=== PATIENT | female | born 1950 | race Caucasian/White ===

== ENCOUNTER 2017-02-05 18:56 | Inpatient (IN) | payer MEDICARE ==
[~2017-02-05] VITALS: Ht 160 cm; Wt 72.0 kg
[2017-02-05 18:58] VITALS: BP 178/83; PULSE 119; RESP 16; TEMP 102.9; O2SAT 98
[2017-02-05] MEDS ORDERED: PIPERACIL-TAZO 4.5 GM PREMIX 100 ML IV STA (19:17)
--- NOTE | 2017-02-05 19:27 | PD ---
HPI Chief Complaint: Bite or Sting Time Seen by Provider: 19:25 Travel History International Travel<30 days: No Contact w/Intl Traveler<30days: No Traveled to known affect area: No History of Present Illness HPI 66-year-old female with history of no significant past medical issues, presents to the ER today because she states that her cat had bitten her on the left arm 4 days ago, and the area started turning red and swollen and she was seen in urgent care yesterday, received Bactrim and doxycycline which she took 1 dose of yesterday. However, she started running fevers last night and the area of redness is spreading, had been told earlier to come to the ER by urgent care and she is here. She denies any other issues. Modifying Factors: None Associated Signs & Symptoms: Left arm cat bite, worsening swelling and redness, fevers Risk Factors: On antibiotics PFSH Past Medical History Bipolar Disorder: Yes Tetanus Vaccination: Unknown Influenza Vaccination: No Social History Alcohol Use: No Tobacco Use: No Substance Use: No Allergies-Medications (Allergen,Severity, Reaction): Coded Allergies: No Known Allergies (Unverified , 02/05/17) Review of Systems Except as stated in HPI: all other systems reviewed are Neg Physical Exam Narrative GENERAL: Well-developed elderly white female patient currently in mild distress. Awake and oriented 3. SKIN: Focused skin assessment warm/dry. There is notable for puncture wounds to the left forearm with significant erythema and edema over the entire left forearm going up the upper arm area. Streaking. Neurovascularly intact. No underlying fluctuance. HEAD: Atraumatic. Normocephalic. EYES: Pupils equal and round. No scleral icterus. No injection or drainage. ENT: No nasal bleeding or discharge. Mucous membranes pink and moist. NECK: Trachea midline. No JVD. CARDIOVASCULAR: Regular rate and rhythm. No murmur appreciated. RESPIRATORY: No accessory muscle use. Clear to auscultation. Breath sounds equal bilaterally. GASTROINTESTINAL: Abdomen soft, non-tender, nondistended. Hepatic and splenic margins not palpable. MUSCULOSKELETAL: No obvious deformities. No clubbing. No cyanosis. No edema. NEUROLOGICAL: Awake and alert. No obvious cranial nerve deficits. Motor grossly within normal limits. Normal speech. PSYCHIATRIC: Appropriate mood and affect; insight and judgment normal. Data Data Last Documented VS Vital Signs Date Time Temp Pulse Resp B/P (MAP) Pulse Ox O2 Delivery O2 Flow Rate FiO2 02/05/17 18:58 102.9 119 16 178/83 (114) 98 Orders Orders Complete Blood Count With Diff (02/05/17 19:17) Comprehensive Metabolic Panel (02/05/17 19:17) Lactic Acid Sepsis Protocol (02/05/17 19:17) Urinalysis - C+S If Indicated (02/05/17 19:17) Blood Culture (02/05/17 19:17) Chest, Single Ap (02/05/17 19:17) Blood Glucose (02/05/17 19:17) Ecg Monitoring (02/05/17 19:17) Iv Access Insert/Monitor (02/05/17 19:17) Oximetry (02/05/17 19:17) Oxygen Administration (02/05/17 19:17) Piperacil-Tazo 4.5 Gm Premix (Zosyn 4.5 (02/05/17 19:17) Labs Laboratory Tests Test 02/05/17 19:25 02/05/17 19:34 White Blood Count 12.2 TH/MM3 Red Blood Count 4.07 MIL/MM3 Hemoglobin 12.0 GM/DL Hematocrit 37.3 % Mean Corpuscular Volume 91.6 FL Mean Corpuscular Hemoglobin 29.4 PG Mean Corpuscular Hemoglobin Concent 32.1 % Red Cell Distribution Width 15.1 % Platelet Count 255 TH/MM3 Mean Platelet Volume 7.1 FL Neutrophils (%) (Auto) 89.9 % Lymphocytes (%) (Auto) 4.9 % Monocytes (%) (Auto) 4.8 % Eosinophils (%) (Auto) 0.2 % Basophils (%) (Auto) 0.2 % Neutrophils # (Auto) 11.0 TH/MM3 Lymphocytes # (Auto) 0.6 TH/MM3 Monocytes # (Auto) 0.6 TH/MM3 Eosinophils # (Auto) 0.0 TH/MM3 Basophils # (Auto) 0.0 TH/MM3 CBC Comment DIFF FINAL Differential Comment Blood Urea Nitrogen 16 MG/DL Creatinine 0.76 MG/DL Random Glucose 126 MG/DL Total Protein 7.9 GM/DL Albumin 3.3 GM/DL Calcium Level 8.5 MG/DL Alkaline Phosphatase 105 U/L Aspartate Amino Transf (AST/SGOT) 54 U/L Alanine Aminotransferase (ALT/SGPT) 58 U/L Total Bilirubin 0.4 MG/DL Sodium Level 136 MEQ/L Potassium Level 3.8 MEQ/L Chloride Level 101 MEQ/L Carbon Dioxide Level 26.3 MEQ/L Anion Gap 9 MEQ/L Estimat Glomerular Filtration Rate 76 ML/MIN Lactic Acid Level 1.5 mmol/L Urine Color YELLOW Urine Turbidity HAZY Urine pH 8.0 Urine Specific [place] 1.013 Urine Protein NEG mg/dL Urine Glucose (UA) NEG mg/dL Urine Ketones NEG mg/dL Urine Occult Blood TRACE Urine Nitrite NEG Urine Bilirubin NEG Urine Urobilinogen LESS THAN 2.0 MG/DL Urine Leukocyte Esterase TRACE Urine RBC 3 /hpf Urine WBC 5 /hpf Urine Squamous Epithelial Cells 2 /hpf Microscopic Urinalysis Comment CATH-CULT NOT IND MDM Medical Decision Making Medical Screen Exam Complete: Yes Emergency Medical Condition: Yes Medical Record Reviewed: Yes Interpretation(s) Laboratory Tests Test 02/05/17 19:25 02/05/17 19:34 White Blood Count 12.2 TH/MM3 (4.0-11.0) Neutrophils (%) (Auto) 89.9 % (16.0-70.0) Lymphocytes (%) (Auto) 4.9 % (9.0-44.0) Neutrophils # (Auto) 11.0 TH/MM3 (1.8-7.7) Lymphocytes # (Auto) 0.6 TH/MM3 (1.0-4.8) Random Glucose 126 MG/DL (74-106) Albumin 3.3 GM/DL (3.4-5.0) Aspartate Amino Transf (AST/SGOT) 54 U/L (15-37) Alanine Aminotransferase (ALT/SGPT) 58 U/L (10-53) Estimat Glomerular Filtration Rate 76 ML/MIN (>89) Urine Turbidity HAZY (CLEAR) Urine Occult Blood TRACE (NEG) Urine Leukocyte Esterase TRACE (NEG) Differential Diagnosis Cat bite/cellulitis, possible sepsis Narrative Course Lab work shows white count elevation and patient has been taking antibiotics but is still running a fever, worsening cellulitis, and there is concern of failed outpatient therapy. At this point, my plan would be to admit her for IV antibiotics which was initiated after cultures have been done. Case was discussed with Dr. Santo for admission. Diagnosis Primary Impression: Left arm cellulitis Additional Impression: Sepsis Admitting Information Admitting Physician Requests: Admit Jose Palomo MD Feb 05, 2017 19:27
[2017-02-05 20:10] LABS: BASOPHIL % 0.2 % (0.0-2.0); EOSINOPHIL % 0.2 % (0.0-4.0); HEMATOCRIT 37.3 % (35.0-46.0); HEMO FLAGS DIFF FINAL; LYMPH % 4.9 % (9.0-44.0); LYMPHOCYTE # 0.6 TH/MM3 (1.0-4.8); MEAN CELL VOLUME 91.6 FL (80.0-100.0); MEAN CORPUSCULAR HEMOGLOBIN 29.4 PG (27.0-34.0); MEAN CORPUSCULAR HGB CONC 32.1 % (32.0-36.0); MONO % 4.8 % (0.0-8.0); NEUT % 89.9 % (16.0-70.0); PLATELET COUNT 255 TH/MM3 (150-450); RED BLOOD COUNT 4.07 MIL/MM3 (4.00-5.30); RED CELL DISTRIBUTION WIDTH 15.1 % (11.6-17.2); WHITE BLOOD COUNT 12.2 TH/MM3 (4.0-11.0)
[2017-02-05 20:17] LABS: BLOOD, URINE TRACE (NEG); GLUCOSE,URINE NEG (NEG); KETONE, URINE NEG (NEG); NITRITE,URINE NEG (NEG); SQUAMOUS EPITHELIAL CELL URINE 2 /hpf (0-5); URINE COLOR YELLOW (YELLW/STRAW)
[2017-02-05 20:18] LABS: COMMENT (UR) CATH-CULT NOT IND; CULTURE IF INDICATED CATH CULTURE NOT IND
[2017-02-05 20:28] LABS: ANION GAP 9 MEQ/L (5-15); AST (GOT) 54 U/L (15-37); BICARBONATE 26.3 MEQ/L (21.0-32.0); BLOOD UREA NITROGEN 16 MG/DL (7-18); CHLORIDE 101 MEQ/L (98-107); GLOMERULAR FILTRATION RATE 76 ML/MIN (>89); POTASSIUM 3.8 MEQ/L (3.5-5.1); SODIUM (NA) 136 MEQ/L (136-145)
[2017-02-05 20:29] LABS: ALT (GPT) 58 U/L (10-53)
[2017-02-05 20:32] LABS: ALKALINE PHOSPHATASE 105 U/L (45-117); TOTAL BILIRUBIN ADULT 0.4 MG/DL (0.2-1.0)
--- NOTE | 2017-02-05 20:48 | RADRPT ---
EXAM DATE/TIME: 02/05/2017 20:21 [place] COMPARISON: No previous studies available for comparison. INDICATIONS : Fever for 2 days. MEDICAL HISTORY : None. SURGICAL HISTORY : None. ENCOUNTER: Initial ACUITY: 2 days PAIN SCORE: 0/10 LOCATION: Bilateral chest FINDINGS: A single view of the chest demonstrates the lungs to be symmetrically aerated without evidence of mas s, infiltrate or effusion. Minimal basilar atelectasis. The cardiomediastinal contours are unremarka ble. Osseous structures are intact. CONCLUSION: 1. Minimal basilar atelectasis. Buddy Mcneal MD on February 05, 2017 at 20:46 Board Certified Radiologist. This report was verified electronically.
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
[2017-02-05] MEDS ORDERED: MAGNESIUM HYDROXIDE SUSP 30 ML CUP PO PRN (21:00)
[2017-02-05] MEDS ORDERED: LACTULOSE SYRUP 20 GM/30 ML CUP PO PRN (21:00)
[2017-02-05] MEDS ORDERED: ACETAMINOPHEN/HYDROcodone 325 MG/5 MG TAB PO PRN (21:00)
[2017-02-05] MEDS ORDERED: ONDANSETRON HCL 4 MG/2 ML VIAL IVP PRN (21:00)
[2017-02-05] MEDS ORDERED: MORPHINE SULFATE 4 MG/ML INJ IV PRN (21:00)
[2017-02-05] MEDS ORDERED: Vancomycin Consult Pharmacy 1 EA OTHER SCH (21:00)
[2017-02-05] MEDS ORDERED: SODIUM CHLORIDE 0.9% FLUSH 10 ML FLUSH IV FLUSH PRN (21:00)
[2017-02-05] MEDS ORDERED: ACETAMINOPHEN 325 MG TAB PO PRN (21:00)
[2017-02-05] MEDS ORDERED: SENNOSIDES 8.6 MG TAB PO PRN (21:00)
[2017-02-05] MEDS ORDERED: BISACODYL 10 MG SUPP RECTAL PRN (21:00)
[2017-02-05] MEDS ORDERED: VANCOMYCIN INJ 1,800 MG in SODIUM CHLORID 0.9% 500 ML INJ 500 ML IV ONE (21:30)
[2017-02-05] MEDS: DOCUSATE SODIUM 50 MG/SENNA 8.6 MG TAB PO SCH (22:13)
[2017-02-05] MEDS: SODIUM CHLORIDE 0.9% FLUSH 10 ML FLUSH IV FLUSH SCH (22:13)
[2017-02-05] MEDS: SODIUM CHLOR 0.9% 1000 ML INJ 1,000 ML IV SCH (22:13)
[2017-02-05 22:23] VITALS: BP 138/76; PULSE 91; RESP 18; O2SAT 96
[2017-02-06] VITALS (7 sets, daily range): BP systolic 127–176; BP diastolic 56–81; PULSE 76–90; RESP 16–18; TEMP 97.4–98.2; O2SAT 94–97
[2017-02-06] MEDS: AMPICILLIN-SULBACTAM INJ 3 GM in SODIUM CHLORIDE 0.9% INJ 100 ML IV SCH ×4 (02:29→23:50)
[2017-02-06] MEDS: SODIUM CHLOR 0.9% 1000 ML INJ 1,000 ML IV SCH ×3 (05:49→22:28)
[2017-02-06] MEDS: DOCUSATE SODIUM 50 MG/SENNA 8.6 MG TAB PO SCH ×2 (09:00→22:11)
[2017-02-06] MEDS: SODIUM CHLORIDE 0.9% FLUSH 10 ML FLUSH IV FLUSH SCH ×2 (09:00→21:00)
[2017-02-06] MEDS: VANCOMYCIN 1,000 MG/NS 250 ML IV SCH ×4 (10:35→22:27)
[2017-02-06 12:25] LABS: AUTOMATED NEUTROPHIL # 8.2 TH/MM3 (1.8-7.7); BASOPHIL % 0.2 % (0.0-2.0); HEMO FLAGS DIFF FINAL; LYMPH % 10.6 % (9.0-44.0); LYMPHOCYTE # 1.1 TH/MM3 (1.0-4.8); MEAN CELL VOLUME 91.6 FL (80.0-100.0); MEAN CORPUSCULAR HGB CONC 32.8 % (32.0-36.0); MONO % 11.9 % (0.0-8.0); NEUT % 77.3 % (16.0-70.0); PLATELET COUNT 247 TH/MM3 (150-450); RED BLOOD COUNT 3.93 MIL/MM3 (4.00-5.30); RED CELL DISTRIBUTION WIDTH 14.7 % (11.6-17.2); WHITE BLOOD COUNT 10.6 TH/MM3 (4.0-11.0)
[2017-02-06 12:54] LABS: ANION GAP 8 MEQ/L (5-15); AST (GOT) 46 U/L (15-37); BICARBONATE 26.3 MEQ/L (21.0-32.0); BLOOD UREA NITROGEN 8 MG/DL (7-18); CHLORIDE 108 MEQ/L (98-107); GLOMERULAR FILTRATION RATE 113 ML/MIN (>89); POTASSIUM 3.4 MEQ/L (3.5-5.1); SODIUM (NA) 142 MEQ/L (136-145)
[2017-02-06] MEDS ORDERED: CLIN1CAP5 PO (12:55)
[2017-02-06] MEDS ORDERED: AUGM875T3 PO (12:55)
[2017-02-06 12:57] LABS: ALKALINE PHOSPHATASE 105 U/L (45-117); ALT (GPT) 88 U/L (10-53); TOTAL BILIRUBIN ADULT 0.3 MG/DL (0.2-1.0)
[2017-02-06] MEDS ORDERED: GABA800T PO (13:05)
[2017-02-06] MEDS ORDERED: LAMO150 PO (13:05)
[2017-02-06] MEDS ORDERED: WELL200T PO (13:05)
[2017-02-06] MEDS ORDERED: LIPI40TA PO (13:05)
--- NOTE | 2017-02-06 14:39 | HHI.PR ---
Subjective Remarks Follow-up for cellulitis. Patient very anxious to go home. She stated that there is mild improvement in her left arm. is at the bedside. No fevers or chills. Objective Vitals Vital Signs Date Time Temp Pulse Resp B/P (MAP) Pulse Ox O2 Delivery O2 Flow Rate FiO2 02/06/17 08:00 98.2 82 18 145/72 (96) 95 02/06/17 02:57 80 02/06/17 01:12 97.4 90 18 127/56 (79) 94 02/06/17 00:21 02/05/17 22:23 91 18 138/76 (96) 96 02/05/17 18:58 102.9 119 16 178/83 (114) 98 I/O 02/05/17 02/05/17 02/05/17 02/06/17 02/06/17 02/06/17 07:00 15:00 23:00 07:00 15:00 23:00 Intake Total 100 ml Balance 100 ml Intake IV Total 100 ml Result Diagram: 02/06/17 1135 02/06/17 1135 Objective Remarks GENERAL: Pleasant middle-aged white female in no acute distress. at bedside. HEENT: PERRLA, EOMI. No scleral icterus or conjunctival pallor. No lid lag or facial droop. CARDIOVASCULAR: Regular rate and rhythm. No obvious murmurs to auscultation. No chest tenderness to palpation. RESPIRATORY: No obvious rhonchi or wheezing. Clear to auscultation. Breath sounds equal bilaterally. GASTROINTESTINAL: Abdomen soft, non-tender, nondistended. BS normal. MUSCULOSKELETAL: Extremities without clubbing, cyanosis, or edema. No obvious deformities. LUE w/ bite dupree to left forearm, surrounding erythema w/ streaking and and duration. NEUROLOGICAL: Awake, alert and oriented x4. No focal neurologic deficits. Moving both upper and lower extremities spontaneously. Medications and IVs Current Medications Piperacillin Sod/ Tazobactam Sod 100 ml @ 200 mls/hr ONCE STAT IV Last administered on 02/05/17 19:46; Start 02/05/17 at 19:17; Stop 02/05/17 at 19:46; Status DC Ampicillin Sodium/ Sulbactam Sodium 3 gm/Sodium Chloride 100 ml @ 200 mls/hr Q6H IV Last administered on 02/06/17 14:14; Start 02/06/17 at 02:00 Pharmacy Profile Note 0 ml @ 0 mls/hr UNSCH OTHER ; Start 02/05/17 at 21:00 Sodium Chloride 1,000 ml @ 100 mls/hr Q10H IV Last administered on 02/06/17 05 :49; Start 02/05/17 at 20:48 Sodium Chloride (NS Flush) 2 ml UNSCH PRN IV FLUSH FLUSH AFTER USING IV ACCESS Last administered on 02/06/17 14:14; Start 02/05/17 at 21:00 Sodium Chloride (NS Flush) 2 ml BID IV FLUSH Last administered on 02/06/17 09: 00; Start 02/05/17 at 21:00 Ondansetron HCl (Zofran Inj) 4 mg Q6H PRN IVP NAUSEA OR VOMITING; Start at 21:00 Acetaminophen (Tylenol) 650 mg Q6H PRN PO FEVER/PAIN SCALE 1 TO 2; Start at 21:00 Acetaminophen/ Hydrocodone Bitart ([place] 5-325 Mg) 1 tab Q4H PRN PO PAIN SCALE 3 TO 5; Start 02/05/17 at 21:00 Morphine Sulfate (Morphine Inj) 2 mg Q3H PRN IV Pain 6-10; Start 02/05/17 at 21: 00 Senna/Docusate Sodium (Jen-Colace) 1 tab BID PO Last administered on 02/05/17 22:13; Start 02/05/17 at 21:00 Magnesium Hydroxide (Milk Of Magnesia Liq) 30 ml Q12H PRN PO MILD - MODERATE CONSTIPATION; Start 02/05/17 at 21:00 Sennosides (Senokot) 17.2 mg Q12H PRN PO MODERATE - SEVERE CONSTIPATION; Start 02/05/17 at 21:00 Bisacodyl (Dulcolax Supp) 10 mg DAILY PRN RECTAL SEVERE CONSITIPATION; Start at 21:00 Lactulose (Lactulose Liq) 30 ml DAILY PRN PO SEVERE CONSITIPATION; Start at 21:00 Vancomycin HCl 1800 mg/Sodium Chloride 518 ml @ 250 mls/hr NOW ONCE IV Last administered on 02/05/17 22:13; Start 02/05/17 at 21:30; Stop 02/05/17 at 23:34; Status DC Vancomycin HCl 1000 mg/Sodium Chloride 250 ml @ 250 mls/hr Q12H IV Last administered on 02/06/17t 10:35; Start 02/06/17 at 09:00 Influenza Virus Vaccine (Flu (Quadrivalent) Vaccine Inj) 0.5 ml ONCE ONCE IM ; Start 02/07/17 at 10:00; Stop 02/07/17 at 10:01 Miscellaneous Information SPECIFIC LAB TO BE DRAWN:VANCO TROUGH DATE TO... ONCE ONCE .XX ; Start 02/07/17 at 08:45; Stop 02/07/17 at 08:46 A/P Problem List: (1) Sepsis ICD Code: A41.9 - Sepsis, unspecified organism Status: Acute (2) Cat bite of left upper arm ICD Code: S41.152A - Open bite of left upper arm, initial encounter; W55.01XA - Bitten by cat, initial encounter (3) Dehydration ICD Code: E86.0 - Dehydration (4) Elevated LFTs ICD Code: R79.89 - Other specified abnormal findings of blood chemistry Assessment and Plan 66-year-old female presented with cat bite resulting in cellulitis Sepsis: Temp 102.9, HR 119, WBC 12.2. Source-Cat Bite. S/p Blood Culture -Patient on vancomycin and Unasyn. Continue her current regimen. -Improve continue her current regimen. Cellulitis due to Cat Bite: RISA, pt's own cat. Follow up cultures as above. -Patient has not had a tetanus shot. Will give tetanus. -Currently on vancomycin and Unasyn. She will need at least another day of IV antibiotics and reassess tomorrow morning. Will give as outpatient clindamycin and Augmentin. Dealt with charge nurse to see patient can have this filled today since pharmacies are closing today. Dehydration -Improved. Continue with IV fluids. Elevated LFTs: Mild. AST 54, ALT 58. No previous labs for comparison, will monitor, repeat labs in am. DVT Prophylaxis: SCD/Teds. Discharge Planning Depending on improvement possible d/c tomorrow. Luann Howell MD Feb 06, 2017 14:39
[2017-02-06] MEDS ORDERED: GABAPENTIN 300 MG CAP PO SCH (18:15)
[2017-02-06] MEDS ORDERED: DIPHTH/TETANUS/ACEL PERTUSSIS (BOOSTER) 0.5 ML VIAL/PFS IM ONE (18:30)
[2017-02-06] MEDS ORDERED: buPROPion HCL 100 MG SUSTAINED RELEASE TAB PO SCH (20:00)
[2017-02-06] MEDS ORDERED: ATORVASTATIN 40 MG TAB PO SCH (21:00)
[2017-02-07] VITALS: BP 150/75; PULSE 87; RESP 16; TEMP 98; O2SAT 98
[2017-02-07 04:00] VITALS: BP 146/72; PULSE 88; RESP 18; TEMP 97.1; O2SAT 98
[2017-02-07] MEDS ORDERED: AMPICILLIN-SULBACTAM INJ 3 GM in SODIUM CHLORIDE 0.9% INJ 100 ML IV SCH (06:00)
[2017-02-07] MEDS: SODIUM CHLORIDE 0.9% FLUSH 10 ML FLUSH IV FLUSH SCH (08:13)
[2017-02-07] MEDS: VANCOMYCIN 1,000 MG/NS 250 ML IV SCH ×2 (08:13)
[2017-02-07] MEDS: DOCUSATE SODIUM 50 MG/SENNA 8.6 MG TAB PO SCH (08:25)
[2017-02-07] MEDS ORDERED: PHARMACY ORDERED LAB ONE (08:45)
--- NOTE | 2017-02-07 08:54 | HHI.DCPOC ---
Discharge Care Plan Diagnosis: (1) Cat bite of left upper arm (2) Left arm cellulitis Goals to Promote Your Health * To prevent worsening of your condition and complications * To maintain your health at the optimal level Directions to Meet Your Goals Take your medications as prescribed Follow your dietary instruction Follow activity as directed Keep your appointments as scheduled Take your immunizations and boosters as scheduled If your symptoms worsen call your PCP, if no PCP go to Urgent Care Center or Emergency Room Smoking is Dangerous to Your Health. Avoid second hand smoke Call the 24-hour hour crisis hotline for domestic abuse at Luann Howell MD Feb 07, 2017 08:54
[2017-02-07] MEDS ORDERED: buPROPion HCL 100 MG SUSTAINED RELEASE TAB PO SCH (09:00)
[2017-02-07] MEDS ORDERED: lamoTRIgine 100 MG TAB PO SCH (09:00)
[2017-02-07] MEDS ORDERED: GABAPENTIN 300 MG CAP PO SCH (09:00)
[2017-02-07 09:05] LABS: HEMATOCRIT 36.6 % (35.0-46.0); MEAN CELL VOLUME 92.7 FL (80.0-100.0); MEAN CORPUSCULAR HEMOGLOBIN 29.9 PG (27.0-34.0); MEAN CORPUSCULAR HGB CONC 32.3 % (32.0-36.0); PLATELET COUNT 271 TH/MM3 (150-450); RED BLOOD COUNT 3.95 MIL/MM3 (4.00-5.30); RED CELL DISTRIBUTION WIDTH 15.3 % (11.6-17.2); REVIEW FLAG FINAL
[2017-02-07 09:19] LABS: BICARBONATE 24.9 MEQ/L (21.0-32.0); POTASSIUM 3.7 MEQ/L (3.5-5.1)
[2017-02-07 09:30] VITALS: BP 158/78; PULSE 84; RESP 16; TEMP 98.2; O2SAT 94
[2017-02-07] MEDS ORDERED: INFLUENZA VIRUS VACCINE (QUADRIVALENT) 0.5 ML SYR IM ONE (10:00)
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
[2017-02-07] MEDS ORDERED: VANCOMYCIN INJ 1,250 MG in SODIUM CHLOR 0.9% 250 ML INJ 250 ML IV SCH (21:00)
[2017-02-09] MEDS ORDERED: PHARMACY ORDERED LAB ONE (08:45)
[2017-02-23] MEDS ORDERED: ZOSTINJ SQ (15:31)
[2017-02-23] MEDS ORDERED: LAMO150 PO (15:53)
[2017-02-23] MEDS ORDERED: LIPI40TA PO (15:53)
[2017-02-23] MEDS ORDERED: GABA600T PO (15:53)
[2017-02-23] MEDS ORDERED: WELL200T PO (15:53)
[2017-03-02] MEDS ORDERED: GABA600T PO (10:50)
[2017-03-02] MEDS ORDERED: LIPI40TA PO (10:50)
[2017-03-02] MEDS ORDERED: LAMO150 PO (10:50)
[2017-03-02] MEDS ORDERED: WELL200T PO (10:50)
== END 2017-02-07 12:14 | disposition left against medical advice (07) | DRG 872 ==
LOC: NEPE 18:56 → NEDA 20:48 → HOCB 02-06 00:22
PROVIDERS: ADMIT Family Medicine; ATTEND Family Medicine
DX: A41.9 Sepsis, unspecified organism (principal); F31.5 Bipolar disorder, current episode depressed, severe, with psychotic features; L03.114 Cellulitis of left upper limb; E86.0 Dehydration; S41.152A Open bite of left upper arm, initial encounter; W55.01XA Bitten by cat, initial encounter; Y92.009 Unspecified place in unspecified non-institutional (private) residence as the place of occurrence of the external cause; R79.89 Other specified abnormal findings of blood chemistry
CPT/HCPCS: 71010; 80048; 80053; 80202; 81001; 83605; 85025; 85027; 87040; 90715; 96365; J0295; J2543; J3370; J7030; J7040; J7050